=== PATIENT | female | born 1950 | race Caucasian/White ===

== ENCOUNTER → 2016-08-24 10:52 | Outpatient (CLI) | payer OTHER | END | disposition home or self-care (01) | LOC: D.RAD 10:52 | DX: M25.551 Pain in right hip (principal) ==

== ENCOUNTER → 2018-12-20 16:55 | Outpatient (CLI) | payer MEDICARE | END | disposition home or self-care (01) | LOC: D.MAMMO 15:00 | PROVIDERS: ATTEND Family Medicine | DX: Z12.31 Encounter for screening mammogram for malignant neoplasm of breast (principal) ==

== ENCOUNTER 2019-02-21 13:30 | Outpatient (CLI) | payer MEDICARE | END 2019-02-21 14:00 | disposition home or self-care (01) | LOC: D.MAMMO 13:30 | PROVIDERS: ATTEND Family Medicine | DX: R92.2 Inconclusive mammogram (principal) ==